=== PATIENT | male | born 1975 | race Caucasian/White ===

== ENCOUNTER 2017-03-20 19:33 | Emergency (ER) | payer OTHER ==
--- NOTE | ~2017-03-20 | ER ---
PATIENT'S NAME: SARAH CABRERA [facility] AGE: 41 Y [address] ROOM: [place] [id number] LOCATION: ED ADMIT DATE: 03/20/2017 ER/Outpatient Report DISCHARGE DATE: 03/20/2017 FAMILY PHYSICIAN: PHYSICIAN, NO ATTENDING PHYSICIAN: Luann Rosa Time of Arrival: 1930 hours. Time of Evaluation: 1930 hours. CHIEF COMPLAINT: Nausea and vomiting. HISTORY OF PRESENT ILLNESS: The patient arrived per EMS. He works at [employer]. States he had a sudden onset of dizziness with nausea and vomiting. Paramedics did start an IV in his right hand. Started normal saline fluids and gave the patient Zofran 4 mg. Upon arrival to the ER, the patient states he continues to be nauseated. He states with any movement of his head, he gets dizzy. He had some chest pain after he vomited. States this all began approximately 2 hours ago. He has not had any abdominal pain. He has not had any diarrhea. No change in his urine pattern. ALLERGIES: NO KNOWN ALLERGIES. MEDICATIONS: Lisinopril. PAST MEDICAL HISTORY: Seasonal asthma, seasonal allergies, hypertension, recurrent sinusitis. PAST SURGICAL HISTORY: A cyst removed from his back. SOCIAL HISTORY: Denies use of tobacco, drugs, or alcohol. Sees a provider at [employer]. REVIEW OF SYSTEMS: All negative other than those mentioned in the HPI. PHYSICAL EXAMINATION: VITAL SIGNS: Blood pressure is 185/77, pulse of 81, respirations 16, temperature of 98, O2 saturation is 94% on room air. GENERAL: He is awake, alert, and oriented x4. SKIN: [place], warm, and dry. PATIENT'S NAME: SARAH CABRERA [facility] AGE: 41 Y [address] ROOM: [place] [id number] LOCATION: [facility] ADMIT DATE: 03/20/2017 ER/Outpatient Report DISCHARGE DATE: 03/20/2017 FAMILY PHYSICIAN: PHYSICIAN, DARLENE ATTENDING PHYSICIAN: Luann Rosa RESPIRATIONS: Even and nonlabored. HEENT: Pupils are equal and reactive to light. Extraocular movement is intact. Negative nystagmus. TMs are injected. Nasal is clear. Oropharynx is clear. NECK: Supple. No lymphadenopathy. LUNGS: Lung sounds are clear throughout. HEART: Regular rate and rhythm. ABDOMEN: Soft and nondistended. Bowel sounds are present. EMERGENCY DEPARTMENT COURSE: The patient was given additional Zofran 4 mg IV. Fluids were continued at a wide-open rate. EKG was done, shows sinus rhythm. Lab work was drawn. CBC is within normal limits. Chem panel is within normal limits. Cardiac enzymes are negative. CT of the head was completed. The dizziness continued and did not improve. CT was negative. The patient was given meclizine 25 mg p.o. and Valium 2 mg IV. He reported that the dizziness was better as long as he did not do any sharp movement, especially with moving his head, back. The patient was discussed with Dr. Rosa. IMPRESSION: Dizziness. PLAN: Discussed with the patient. We will allow him to go home. Rest. Fluids. He is to take Jessica, Zyrtec for the allergy component and follow up with ENT if his symptoms persist or worsen. He verbalized understanding. KASIA PHAM APRN FOR MD [address]/vignesh /[id number] d: 03/21/17 0221 t: 03/22/17 1844, OUTPATIENT REPORT
[2017-03-20 19:54] LABS: BASOPHIL % 0.4 %; EOSINOPHIL # 0.3 K/uL (0.0-0.5); EOSINOPHIL % 3.2 %; HEMATOCRIT 43.1 % (37.0-53.0); HEMOGLOBIN 14.8 g/dL (12.0-17.0); IMMATURE GRANULOCYTE % 0.2 %; LYMPHOCYTE % 11.1 %; MCH 31.4 pg (27.0-34.0); MCHC 34.3 gm/dL (32.0-36.5); MCV 91.3 fl (83.0-98.0); MONOCYTE # 0.5 K/uL (0.0-1.0); MONOCYTE % 5.8 %; MPV 10.5 fl (9.4-12.4); NEUTROPHIL # (ANC) 7.2 K/uL (1.4-9.0); NEUTROPHIL % 79.3 %; NRBC % 0 /100WBC (0-0.00); PLATELET COUNT 189 K/uL (150-450); RBC 4.72 M/uL (4.00-6.00); RDW-CV 12.4 % (11.9-14.6); WBC 9.1 K/uL (4.0-11.0)
[2017-03-20 20:03] LABS: INR - (THERAPEUTIC) 1.06 (0.92-1.07); PROTIME 11.1 SECONDS (9.8-11.4); PTT 25 SECONDS (25-32)
[2017-03-20 20:12] LABS: ALBUMIN 3.8 gm/dL (3.5-5.0); ALK PHOS 83 IU/L (33-138); ALT 36 IU/L (12-78); ANION GAP 11.6 (10.0-19.0); AST 22 IU/L (10-40); BLOOD UREA NITROGEN 12 mg/dL (6-24); CALCIUM 8.6 mg/dL (8.5-10.5); CHLORIDE 107 mMol/L (96-110); CO2 26 mMol/L (22-32); CPK 265 IU/L (35-332); CREATININE 1.1 mg/dL (0.6-1.3); ESTIMATED GFR (MDRD EQUATION) > 60; POTASSIUM 3.6 mMol/L (3.7-5.1); SODIUM 141 mMol/L (135-145); TOTAL BILIRUBIN 0.6 mg/dL (0.0-1.5); TOTAL PROTEIN 7.2 g/dL (6.0-8.4)
== END 2017-03-20 21:22 | disposition disaster alternative care site (69) ==
LOC: GMED 19:33
PROVIDERS: Nurse Practitioner Family
DX: R42 Dizziness and giddiness (principal); J45.909 Unspecified asthma, uncomplicated; I10 Essential (primary) hypertension; Z98.890 Other specified postprocedural states; Z79.899 Other long term (current) drug therapy
CPT/HCPCS: J2405; J3360

== ENCOUNTER → 2017-03-20 | Outpatient (CLI) | payer OTHER | END | disposition disaster alternative care site (69) | LOC: GAMB 19:01 | DX: R42 Dizziness and giddiness (principal); R11.2 Nausea with vomiting, unspecified; R51 Headache | CPT/HCPCS: A0425; A0427; J2405; J7030 ==